=== PATIENT | male | born 1990 ===

== ENCOUNTER 2016-10-22 15:08 | Emergency (ER) | payer OTHER ==
[2016-10-22 15:13] VITALS: BP 150/88; PULSE 80; RESP 16; TEMP 99; O2SAT 100
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
== END 2016-10-22 17:24 | disposition home or self-care (01) ==
LOC: H.ER 15:08
DX: M54.2 Cervicalgia (principal); V43.62XA Car passenger injured in collision with other type car in traffic accident, initial encounter; Y92.410 Unspecified street and highway as the place of occurrence of the external cause; E04.1 Nontoxic single thyroid nodule
CPT/HCPCS: 72125; 96372; 99282; J1885